=== PATIENT | male | born 1960 | race Caucasian/White ===

== ENCOUNTER 2023-06-15 16:43 | Emergency (ER) | payer BC, MEDICAID, SELFPAY ==
[2023-06-15] VITALS (17 sets, daily range): BP systolic 112–156; BP diastolic 82–92; PULSE 107–112; RESP 18–30; TEMP 36.7; O2SAT 90–94
--- NOTE | 2023-06-15 16:44 | CTR_ITS ---
PROCEDURE INFORMATION: Exam: CT Head Without Contrast Exam date and time: 06/15/2023 4:42 PM Age: 62 years old Clinical indication: Stroke-like symptoms; Lt upper extremity weakness; Additional info: Symptoms of acute stroke TECHNIQUE: Imaging protocol: Computed tomography of the head without contrast. Radiation optimization: All CT scans at this facility use at least one of these dose optimization techniques: automated exposure control; mA and/or kV adjustment per patient size (includes targeted exams where dose is matched to clinical indication); or iterative reconstruction. Other technique: STROKE PROTOCOL was implemented. COMPARISON: No relevant prior studies available. RADIATION DOSE METRICS: Total DLP (mGy-cm): 1171.38 FINDINGS: Brain: No evidence of intra-axial or extra-axial hemorrhage. No mass effect or midline shift. Gordon-white differentiation is maintained. There is focal white matter hypoattenuation in the right parietal lobe, age-indeterminate and possibly chronic (for example, image 34 of the axial series 5). Basilar cisterns are patent. Cerebral ventricles: No hydrocephalus. Asymmetry of the lateral ventricles is noted. Paranasal sinuses: The visualized paranasal sinuses are well aerated. Mastoid air cells: The visualized mastoids and middle ears are clear. Bones/joints: The visualized calvarium and bony orbits are intact. Soft tissues: No gross soft tissue abnormality. CT/CT head thrombolytic [id number] IMPRESSION: 1. No intracranial hemorrhage or convincing evidence of acute ischemia. 2. Focal white matter hypoattenuation in the right parietal lobe, age-indeterminate and possibly chronic. If there is clinical concern for acute ischemia beyond the window for neuro intervention, consider correlation with MRI. ASSESSMENT: ASPECTS ([place] Stroke Program Early CT Score) is 10.
--- NOTE | 2023-06-15 16:44 | XRR_ITS ---
PROCEDURE INFORMATION: Exam: XR Chest Exam date and time: 06/15/2023 5:02 PM Age: 62 years old Clinical indication: Patient HX: AMS; Stroke like symptoms; Cough; Recent lung CA diagnosis TECHNIQUE: Imaging protocol: Radiologic exam of the chest. Views: 1 view. COMPARISON: CT angio headneck* [id number] 06/15/2023 4:47 PM FINDINGS: Lungs: Cavitary left upper lobe lung mass with adenopathy/mediastinal invasion on the left. There are emphysematous changes. Right lung is otherwise grossly clear. Pleural spaces: No evidence of pneumothorax. Suspected small left-sided pleural effusion. No evidence of pleural effusion on the right. Heart/Mediastinum: Cardiomediastinal silhouette is within normal limits. Bones/joints: No evidence of acute osseous abnormality. XR/XR chest 1V portable [id number] IMPRESSION: 1. Large cavitary left upper lobe lung mass with mediastinal adenopathy/mediastinal invasion. 2. Small left-sided pleural effusion.
--- NOTE | 2023-06-15 16:44 | ECG_ITS ---
Test Date: 2023-06-15 Pat Name: Richie Whittington Department: Room: Gender: Male Lapeler: : 1960 Requested By: Syed Blackwood Order Number: [id number] Gillian MD: Neil Atwood M.D. Measurements Intervals Endeavor Rate: 111 P: 108 PA: 170 QRS: 196 QRSD: 88 T: 102 QT: 328 QTc: 447 Interpretive Statements SINUS TACHYCARDIA ARM LEADS REVERSED [INVERTED P AND QRS IN I] ABNORMAL RHYTHM ECG INTERPRETATION BASED ON A DEFAULT AGE OF 40 YEARS No previous ECG available for comparison Electronically Signed On 06-16-2023 14:17:43 TACK PICKER by Neil Atwood M.D. [id number]
--- NOTE | 2023-06-15 16:45 | ED_ITS ---
HPI - Altered Mental Status 2 General: Chief Complaint: Neuro Symptoms/Deficit Stated Complaint: STROKE Time Seen by Provider: 06/15/23 16:44 History of Present Illness: 62-year-old male presents to the emergen cy department via EMS personnel with left upper and left lower paralysis that started today at 1555. The patient and his state that he attempted to take a step and then fell down hitting a metal trash can lid. The patient's states that he suddenly was unable to move his left upper and left lower extremity. The patient recently was diagnosed with lung cancer and started treatments approximately 3 days ago. Patient's initial GCS was 15, his NIH stroke score was 9. He denies headache, neck pain, chest pain or shortness of breath at present. Review of Systems 2 General: Reports: 10 or more systems reviewed and unremarkable except in HPI and below Resp: Reports: non-productive cough Neuro: Reports: weakness in extremities and difficulty walking; Denies: sensory changes Physical Exam 2 Narrative: Constitutional: the patient appears well nourished and with normal development. Vital signs reviewed as documented. GCS 15, alert and oriented x 4, person, place, time and situation. HENMT: Normocephalic, atraumatic. External ears normal appearance without drainage. Nose without drainage, normal appearance. Mucus membranes moist. Neck is supple, No jugular venous distension, trachea is midline, no appreciable carotid bruits. No lymphadenopathy. No meningeal signs. Normal alignment, no palpable crepitus or step-offs. Flexion, extension and lateral rotation of the neck is without pain. Eyes: Pupils are equal, round, reactive to light and accommodation. No scleral icterus. Extra-ocular movement are intact. Thorax is symmetrical and with equal rise and fall with respirations. Resp: Lungs are clear to auscultation. No wheezes, rales, crackles or ronchi at present. Cardio: Regular rate and rhythm. Positive S1, S2. No appreciable murmurs, rubs or gallops. GI: Abdominal exam reveals normal bowel sounds to all quadrants. No organomegaly. No obvious palpable masses noted. No hepatomegally appreciated. Soft, non-tender to palpation. Extremity: Extremities are non-edematous and both femoral and pedal pulses are 2+ and equal bilaterally. Moves all extremities well, sensation in all extremities. Neuro: Alert and oriented x4, person, place, time and situation. Left upper extremity paralysis, left lower extremity paralysis. Sensation remains intact. Motor strength in the right upper and right lower extremities are equal and 5/5. Psych: Cooperative, calm, normal thought process, appropriate judgment. Skin: No lesions, rashes. No gross abnormalities noted. Back: Symmetrical, no obvious deformity, No CVA tenderness. Normal alignment, no palpable crepitus, no palpable step-offs. Course 2 Vital Signs: Vital signs: Vital Signs Temperature 98.1 F 06/15/23 17:09 Pulse Rate 107 H 06/15/23 18:15 Respiratory Rate 27 H 06/15/23 18:15 Blood Pressure 112/82 06/15/23 18:26 Pulse Oximetry 94 06/15/23 18:15 Oxygen Delivery Me thod Room Air 06/15/23 17:06 MDM - Altered Mental Status Medical Decision Making Physical exam completed and documented, I will obtain POC glucose check and treat accordingly. I will obtain a chest x-ray and a CT scan of the head without contrast to evaluate for intracranial hemorrhage and a CTA scan of the head and neck for evaluation of acute ischemic vessel occlusion. I have reviewed previous and pertinent medical records for assist in obtaining benefical medical information to improved the care and treatment of the patient. I have placed a stat neurology consult for concerns of altered mental status and completed the appropriate stroke alert protocol. We will provide thromboembolic medication and at the request of Dr. Almanza and the patient and patient's we will transfer to [facility] in [facility] as this is where he receives his oncology treatment. Additionally, given Dr. Almanza's concern for possible neurosurgical evaluation and intervention as well as vascular intervention we have decided to transfer the patient for higher level of care. Patient does have a significantly elevated white blood cell count and I suspect this is most likely secondary to his recent corticosteroid use as well as his oncology therapy. Reevaluation of the patient does not demonstrate significant improvements to the patient's left upper extremity he now has full movement of the left upper extremity. Additionally, he does have increased movement of the left lower extremity. Lab Data I reviewed the patient's lab results. 06/15/23 16:55 06/15/23 16:55 Radiology Impressions Chest X-Ray 06/15/23 16:44 IMPRESSION: 1. Large cavitary left upper lobe lung mass with mediastinal adenopathy/mediastinal invasion. 2. Small left-sided pleural effusion. Head CT 06/15/23 16:44 IMPRESSION: 1. No intracranial hemorrhage or convincing evidence of acute ischemia. 2. Focal white matter hypoattenuation in the right parietal lobe, age-indeterminate and possibly chronic. If there is clinical concern for acute ischemia beyond the window for neuro intervention, consider correlation with MRI. ASSESSMENT: ASPECTS ([place] Stroke Program Early CT Score) is 10. Head/Neck CTA 06/15/23 16:47 IMPRESSION: 1. No evidence of large vessel occlusion or acute thrombosis in the head. IMPRESSION: 1. No evidence of acute thrombosis in the neck. 2. Large cavitary left upper lobe lung mass measuring with mediastinal invasion, encasing the left main and central pulmonary arteries. There is severe narrowing and possible thrombosis of the anterior segmental left upper lobe pulmonary artery. If not previously characterized, dedicated CT of the chest is recommended. REFERENCES: NASCET CRITERIA. The degree of stenosis in the cervical segment of the internal carotid artery is based on NASCET criteria. Normal is no stenosis. Mild is less than 50% stenosis. Moderate is 50-69% stenosis. Severe is 70% to 99% stenosis. Total occlusion is no detectable patent lumen. ADDENDUM: 06/15/23 2745 Impression #3: Findings concerning for pulmonary thromboemboli in the right upper lobe, evaluation of which is limited by marked respiratory motion and partial visualization of the vessels. Consider correlation with dedicated CT angiography to exclude PE. THIS REPORT CONTAINS FINDINGS THAT MAY BE CRITICAL TO PATIENT CARE. The findings were verbally communicated by telephone with UNIQUE Larry at 5:25 PM FORECLOSURE SPECIALIST on 06/15/2023. The findings were acknowledged and understood. Laboratory Results WBC 37.13 10^3/uL (3.29-11.43) H* 06/15/23 16:55 RBC 3.75 10^6/uL (3.85-5.65) L 06/15/23 16:55 Hgb 9.80 g/dL (11.27-16.99) L 06/15/23 16:55 Hct 32.1 % (37-53) L 06/15/23 16:55 MCV 85.6 fl (82-101) 06/15/23 16:55 MCH 26.1 pg (27-33) L 06/15/23 16:55 MCHC 30.5 g/dL (30-55) 06/15/23 16:55 RDW 14.3 % (12.1-15.1) 06/15/23 16:55 Plt Count 368 10^3/cmm (157-399) 06/15/23 16:55 MPV 9.6 fL (7.4-10.4) 06/15/23 16:55 Neut % (Auto) 95.7 % 06/15/23 16:55 Lymph % (Auto) 3.6 % 06/15/23 16:55 [place] % (Auto) 0.5 % 06/15/23 16:55 Eos % (Auto) 0.2 % 06/15/23 16:55 Baso % (Auto) 0.0 % 06/15/23 16:55 Neut # (Auto) 27.01 10^3/uL (1.8-7.7) H 06/15/23 16:55 Lymph # (Auto) 1.3 10^3/uL (0.8-4.8) 06/15/23 16:55 [place] # (Auto) 0.2 10^3/uL (0.2-0.9) 06/15/23 16:55 Eos # (Auto) 0.1 10^3/uL (0.0-0.8) 06/15/23 16:55 Baso # (Auto) 0.0 10^3/uL (0.0-0.1) 06/15/23 16:55 Nucleated RBC % (auto) 0 % 06/15/23 16: Nucleated RBCs # 0.0 /100WBC 06/15/23 16:55 PT 15.60 SECONDS (12.1-14.9) H 06/15/23 16:55 INR 1.20 (0.8-1.2) 06/15/23 16:55 APTT 35.0 SECONDS (23.9-36.7) 06/15/23 16:55 Sodium 134 mmol/L (136-145) L 06/15/23 16:55 Potassium 3.8 mmol/L (3.5-5.1) 06/15/23 16:55 Chloride 99 mmol/L (98-107) 06/15/23 16:55 Carbon Dioxide 22 mmol/L (22-29) 06/15/23 16:55 Anion Gap 16.8 (5-19) 06/15/23 16:55 BUN 18 mg/dL (8-23) 06/15/23 16:55 Creatinine 0.5 mg/dL (0.7-1.2) L 06/15/23 16:55 GFR Calculation 169.6 mL/min (90-130) H 06/15/23 16:55 Glucose 138 mg/dL (65-115) H 06/15/23 16:55 Calculated Osmolality 282 mOsm/kg (285-295) L 06/15/23 16:55 Calcium 7.4 mg/dL (8.5-10.5) L 06/15/23 16:55 Total Bilirubin 0.5 mg/dL (0.15-1.2) 06/15/23 16:55 AST 12 U/L (0-40) 06/15/23 16:55 ALT 17 U/L (0-41) 06/15/23 16:55 Alkaline Phosphatase 108 U/L (40-130) 06/15/23 16:55 Total Protein 5.7 g/dL (6.6-8.7) L 06/15/23 16:55 Albumin 3.2 g/dL (3.5-5.2) L 06/15/23 16:55 Globulin 2.5 g/dL (1.3-4.6) 06/15/23 16:55 All radiology interpretation(s) finalized by discharge Critical Care Time 2 Critical Care Time: Critical Care Time: Yes Total Critical Care Time: 60 Attestation: The patient was emergently evaluated, as this patient's presentation and case had a high probability of a clinically significant, sudden, or life threatening deterioration of this patient's initial critical presentation or condition which required my full and direct attention, intervention and personal management. Discharge Plan Discharge Patient Disposition: Xfer Short-Term Hosp Clinical Impression: Altered mental status, Acute CVA (cerebrovascular accident) Condition: Stable Coding Level of Care Code ED Lockstitch Hemmer for Kusum Contreras
--- NOTE | 2023-06-15 16:47 | CTR_ITS ---
PROCEDURE INFORMATION: Exam: CTA Head With Contrast, Arteriography Exam date and time: 06/15/2023 4:47 PM Age: 62 years old Clinical indication: Pain; Headache; Patient HX: Left arm weakness; Additional info: AMS TECHNIQUE: Imaging protocol: Computed tomographic angiography of the head with contrast. Exam focused on the arteries. 3D rendering (Not supervised by radiologist): MIP and/or 3D reconstructed images were created by the technologist. Radiation optimization: All CT scans at this facility use at least one of these dose optimization techniques: automated exposure control; mA and/or kV adjustment per patient size (includes targeted exams where dose is matched to clinical indication); or iterative reconstruction. Contrast material: OMNI 350; Contrast volume: 100 ml; Contrast route: INTRAVENOUS (IV); COMPARISON: CT head thrombolytic [id number] 06/15/2023 4:42 PM RADIATION DOSE METRICS: Total DLP (mGy-cm): 563.57 FINDINGS: ANTERIOR CIRCULATION: Right internal carotid artery: No evidence of thrombosis or aneurysm. No evidence of hemodynamically significant stenosis. No evidence of vascular injury. Right middle cerebral artery: No evidence of thrombosis or aneurysm. Right anterior cerebral artery: No evidence of thrombosis or aneurysm. Left internal carotid artery: No evidence of thrombosis or aneurysm. No evidence of hemodynamically significant stenosis. No evidence of vascular injury. Left middle cerebral artery: No evidence of thrombosis or aneurysm. Left anterior cerebral artery: No evidence of thrombosis or aneurysm. POSTERIOR CIRCULATION: Right vertebral artery: No evidence of thrombosis or aneurysm. No evidence of vascular injury. Left vertebral artery: No evidence of thrombosis or aneurysm. No evidence of vascular injury. Basilar artery: No evidence of thrombosis or aneurysm. Right posterior cerebral artery: No evidence of thrombosis or aneurysm. Left posterior cerebral artery: No evidence of thrombosis or aneurysm. PROCEDURE INFORMATION: Exam: CTA Neck With Contrast Exam date and time: 06/15/2023 4:47 PM Age: 62 years old Clinical indication: Pain; Headache; Patient HX: Left arm weakness; Additional info: AMS TECHNIQUE: Imaging protocol: Computed tomographic angiography of the neck with contrast. Exam focused on the cervical segments of the vasculature. 3D rendering (Not supervised by radiologist): MIP and/or 3D reconstructed images were created by the technologist. Radiation optimization: All CT scans at this facility use at least one of these dose optimization techniques: automated exposure control; mA and/or kV adjustment per patient size (includes targeted exams where dose is matched to clinical indication); or iterative reconstruction. Contrast material: OMNI 350; Contrast volume: 100 ml; Contrast route: INTRAVENOUS (IV); COMPARISON: CT head thrombolytic [id number] 06/15/2023 4:42 PM RADIATION DOSE METRICS: Total DLP (mGy-cm): 563.57 FINDINGS: Right common carotid artery: Grossly patent. Evaluation of the mid common carotid artery is limited by motion degradation. Right internal carotid artery: Mild-moderate mixed atherosclerotic plaque of the carotid bulb and proximal right internal carotid artery. No evidence of hemodynamically significant stenosis. No evidence of dissection. Right external carotid artery: Patent. Left common carotid artery: Grossly patent. Evaluation of the mid common carotid artery is limited by motion degradation. Left internal carotid artery: Mild-moderate mixed atherosclerotic plaque of the carotid bulb and proximal left internal carotid artery. No evidence of hemodynamically significant stenosis. No evidence of dissection. Left external carotid artery: Patent. Right vertebral artery: Patent. No evidence of dissection. Left vertebral artery: Dominant. Patent. No evidence of dissection. Soft tissues: No evidence of fluid collection or hematoma. Lung apices: Large cavitary left upper lobe lung mass measuring approximately 10 cm with mediastinal invasion, encasing the left main pulmonary artery and central pulmonary arteries. There is severe narrowing and possible thrombosis of the anterior segmental left upper lobe pulmonary artery. Background of severe biapical emphysematous changes. Bones/joints: No evidence of acute fracture or subluxation of the cervical spine. Uncovertebral hypertrophy results in moderate-severe bilateral foraminal stenosis at C3-C4. Uncovertebral hypertrophy and facet arthrosis results in moderate-severe left-sided foraminal stenosis at C5-C6 and C6-C7. CT/CT angio headneck* [id number] IMPRESSION: 1. No evidence of large vessel occlusion or acute thrombosis in the head. IMPRESSION: 1. No evidence of acute thrombosis in the neck. 2. Large cavitary left upper lobe lung mass measuring with mediastinal invasion, encasing the left main and central pulmonary arteries. There is severe narrowing and possible thrombosis of the anterior segmental left upper lobe pulmonary artery. If not previously characterized, dedicated CT of the chest is recommended. REFERENCES: NASCET CRITERIA. The degree of stenosis in the cervical segment of the internal carotid artery is based on NASCET criteria. Normal is no stenosis. Mild is less than 50% stenosis. Moderate is 50-69% stenosis. Severe is 70% to 99% stenosis. Total occlusion is no detectable patent lumen.
[2023-06-15] MEDS: iohexol 350 mg/mL 500 mL Btl (per mL) IV (16:56)
[2023-06-15 17:06] LABS: Eosinophils # 0.1 10^3/uL (0.0-0.8); Eosinophils % 0.2 %; Hematocrit 32.1 % (37-53); Lymphocytes # 1.3 10^3/uL (0.8-4.8); Lymphocytes % 3.6 %; Mean Corpuscular HGB Conc 30.5 g/dL (30-55); Mean Corpuscular Hemoglobin 26.1 pg (27-33); Mean Corpuscular Volume 85.6 fl (82-101); Mean Platelet Volume 9.6 fL (7.4-10.4); Monocytes # 0.2 10^3/uL (0.2-0.9); Monocytes % 0.5 %; Neutrophils # 27.01 10^3/uL (1.8-7.7); Nucleated Red Blood Cells % 0 %; Platelet Count 368 10^3/cmm (157-399); Red Blood Count 3.75 10^6/uL (3.85-5.65); Red Cell Distribution Width 14.3 % (12.1-15.1)
[2023-06-15 17:21] LABS: Neutrophils % 95.7 %; White Blood Count 37.13 10^3/uL (3.29-11.43)
[2023-06-15] MEDS: tenecteplase 50mg Kit (STROKE) IVP (17:21)
[2023-06-15 17:22] LABS: Alanine Aminotransferase 17 U/L (0-41); Albumin Level 3.2 g/dL (3.5-5.2); Alkaline Phosphatase 108 U/L (40-130); Blood Urea Nitrogen 18 mg/dL (8-23); Calcium 7.4 mg/dL (8.5-10.5); Carbon Dioxide 22 mmol/L (22-29); Chloride 99 mmol/L (98-107); Globulin 2.5 g/dL (1.3-4.6); Glomerular Filtration Rate 169.6 mL/min (90-130); Glucose 138 mg/dL (65-115); Osmolality Calculated 282 mOsm/kg (285-295); Sodium 134 mmol/L (136-145); Total Bilirubin 0.5 mg/dL (0.15-1.2); Total Protein 5.7 g/dL (6.6-8.7)
[2023-06-15 17:25] LABS: Slide Review Slide Review Perform
--- NOTE | 2023-06-15 17:35 | PM.CONSULT ---
Providers/Reason For Consult Consulting Physician/Specialty*: Randy Almanza MD neurology and epilepsy Reason for Consult*: Code stroke emergency department room #11 History of Present Illness History of Present Illness Richie Whittington is a 62 year old male with a history of hypothyroidism and left upper lobe lung cancer addressed by oncology physicians at [facility]. Patient started chemotherapy x 1 dose 1 week ago with plans for radiation therapy and repeat chemotherapy on 06/30/2023 in [facility]. On 06/14/2023 patient stated that he began experiencing bilateral leg pain and on 06/15/2023 at 3:55 PM the patient was walking through his home and was reported by his to collapse and hit his head on a metal trashcan but there was no loss of consciousness reported. Patient was observed to have right lower facial weakness and left arm and left leg paralysis with dysarthria. EMS was contacted and the patient was brought to [facility] emergency room. NIH score =12 secondary to mild right lower facial weakness, near left upper extremity paralysis, left lower extremity paralysis, neglect involving the left arm and left leg on double sensory stimulation and no movement or sensation to pain applied to the nailbeds of the left arm and left leg and dysarthria. Accu-Chek glucose by EMS 163. Glucose obtained at [facility] emergency room 171. In the emergency room stat noncontrast head CT scan and CT angiogram of the head and neck were obtained. Noncontrast head CT revealed Focal white matter hypoattenuation in the right parietal lobe, age-indeterminate and possibly chronic. CT angiogram of the head and neck revealed No evidence of acute thrombosis in the neck. Large cavitary left upper lobe lung mass measuring with mediastinal invasion, encasing the left main and central pulmonary arteries. There is severe narrowing and possible thrombosis of the anterior segmental left upper lobe pulmonary artery. Blood pressure 156/92 prior to intravenous TNKase (tenecteplase) administration. Consent for intravenous tenecteplase was obtained from the patient's and intravenous tenecteplase 24 mg was given at 5:20 PM without issues. In view of the patient's large lung mass and potential risk for bleeding into the chest and or brain, patient was referred to [facility] to patient's doctors there as well as a facility where legal department manager and neurosurgeons are available for any acute neurological complications from intravenous tenecteplase. In the emergency room the patient began having some movement of the fingers in the left hand and he remained stable following intravenous tenecteplase administration. Twelve-lead EKG performed by EMS revealed sinus tachycardia heart rate between 110 and 120. Drug allergies: None Current home medications: Synthroid Compazine Zofran Mucinex Past medications: Short course of oral steroids Past medical history: Hypothyroidism Large left upper lobe lung cancer, addressed by oncology in [facility] Habits: The patient smokes but decrease his nicotine intake to 1 cigarette every 2 days Family history: No known family history of stroke. According to the patient's the patient's father and he is not familiar with his father's past health history. Review of Systems General: Reports: 10 or more systems reviewed and unremarkable except in HPI and below Musc: Reports: extremity pain and other (Complaint of bilateral neck pain since 06/14/2023) Medications/Allergies Allergies Allergy/AdvReac Type Severity Reaction Status Date / Time No Known Allergies Allergy Verified 06/15/23 17:00 Vitals/I&O/Wt Last Vital Signs Temp 98.1 F 06/15/23 17:09 Pulse 112 H 06/15/23 17:06 Resp 18 06/15/23 17:06 BP 156/92 06/15/23 17:06 Pulse Ox 91 06/15/23 17:06 O2 Del Method Room Air 06/15/23 17:06 Weight last 48 hrs Weight 215 lb Physical Exam Narrative: Blood pressure 156/92 NIH score = 12 The patient remains alert. Speech mildly dysarthric. Patient able to follow commands and answer questions appropriately. Head atraumatic. Neck supple. Cranial nerves II through XII revealed mild right lower facial weakness. Other cranial nerves grossly intact. Throat clear patient able to protrude his tongue. There was elevation of his palate bilaterally. Pupils 4 mm round reactive to light and accommodation. Extraocular movements intact. Visual lauren appear to be full via confrontation. There were no nystagmus. Motor testing revealed near paralysis of the left upper extremity with only some very slight movement of his left thumb. Left lower extremity revealed paralysis. Patient displayed no movement or preceding detection when pressure was applied to the nailbeds on the left hand and left foot with no movement of the left hand or left foot. Patient was able to detect pain in the right foot and right hand. Patient was able to detect touch in the right arm and right leg but not in the left arm or left leg. There was neglect on the left side of his body involving his left arm and left leg. Deep tendon reflexes 1+ bilaterally. Plantar responses flexor bilaterally. There was no clonus. Coordination in the right arm and right leg were within normal limits. Coordination could not be assessed in the left arm and left leg secondary to near paralysis in the left upper extremity and paralysis in the left lower extremity. Throat clear. Lungs clear. Heart regular rhythm with slightly increased rate of sinus tachycardia at approximately 110-111. Abdomen soft. Extremities were negative for clubbing cyanosis or edema. Data 06/15/23 16:55 06/15/23 16:55 A&P Assessment and plan (1) Right hemisphere, cerebral infarction: Impression: 1. Acute onset of left-sided paralysis associated with dysarthria and right lower facial weakness consistent with right MCA distribution infarction. Since the patient's clinical event was reported to occur at 3:55 PM on 06/15/2023 at the patient's home witnessed by his and EMS was contacted. Code stroke was initiated 4:22 PM reporting the patient was 20 minutes out from the [facility] emergency room. Patient was a candidate for intravenous tenecteplase (TNKase) and intravenous tenecteplase was administered at 5:20 PM on 06/15/2023. 2. Large left upper lobe lung cancer addressed by oncology in [facility], patient's status post 1 dose of chemotherapy 1 week prior to 06/15/2023 with plans for repeat chemotherapy and radiation therapy 06/30/2023 in [facility] 3. Bilateral leg pain since 06/14/2023 etiology unclear 4. Hypothyroidism, patient on Synthroid Plan: 1. Follow post intravenous tenecteplase protocol per NIH protocol 2. Patient will be transferred to [facility] for further care with neurosurgery and legal department manager as needed and to monitor the patient's left upper lobe lung cancer for any potential hemorrhage post intravenous tenecteplase administration 3. Recommend repeat noncontrast head CT 24 hours post intravenous tenecteplase or sooner if needed 4. Recommend repeat chest CT 24 hours post intravenous tenecteplase or sooner if needed to monitor for any hemorrhage 5. No hypotonic fluids to minimize any cerebral edema 6. Recommend starting aspirin and lipid-lowering agent per NIH stroke protocol 24 hours after intravenous tenecteplase which was given on 06/15/2023 at 5:20 PM if no bleeding or contraindications Consult Attestations Medical Necessity Statement: Patient evaluated by neurology for acute care/code stroke emergency department room #11, and tenecteplase intravenous administration Coding Level of Care Code 96085 Diagnoses Right hemisphere, cerebral infarction I63.9 Time Spent (min) 60
--- NOTE | 2023-06-15 17:36 | PC.NURSE ---
PATIENT ABLE TO MOVE LEFT FOOT BACK AND FORTH AND SLIGHTLY LIFT LEFT HAND. FURRIER APPRENTICE STILL UNEQUAL.
[2023-06-15 17:37] LABS: Anion Gap 16.8 (5-19); Aspartate Amino Transferase 12 U/L (0-40); Potassium 3.8 mmol/L (3.5-5.1)
--- NOTE | 2023-06-15 17:54 | PC.NURSE ---
PATIENT NOW ABLE TO MOVE LEFT ARM WITH FULL ROM AGAINST GRAVITY. PATIENT FLOATLIGHT POWDER MIXER RIGHT>LEFT. PATIENT ABLE TO FLEX LEFT FOOT.
--- NOTE | 2023-06-15 18:08 | PC.NURSE ---
PATIENT ATTEMPTING TO MOVE LEFT SIDE AGAINST GRAVITY, ABLE TO PROVIDE MOVEMENT BUT NOT MEANINGFUL.
== END 2023-06-15 18:26 | disposition short-term general hospital (02) ==
PROVIDERS: Emergency Provider Internal Medicine
DX: I63.9 Cerebral infarction, unspecified (principal); R41.82 Altered mental status, unspecified
CPT/HCPCS: 70450; 70496; 70498; 71045; 80053; 85025; 85610; 85730; 93005; 96374; 99285; 99291; J3101; Q9967